=== PATIENT | male | born 1950 | race African-American/Black ===

== ENCOUNTER 2016-09-03 16:23 | Emergency (ER) | payer OTHER ==
[~2016-09-03 16:23] MED LIST: BC POWDER PO; BYSTOLIC5 MG PO; COLCH6 PO; COLCRYS0.6 MG PO; ENDOCET1 TA3 PO; GOODYS PM1 POW OR; GOUT MEDICATION; INDO50 PO; KADIAN10 MG PO; KADIANSR30 PO; KAPIDEX60 MG PO; LISINOPRIL40 MG PO; LORTAB10 PO; MIRALAXPKT PO; MSCONT60 PO; MSCONTIN PO; NEUR300 PO; NEUR600 PO; NORV10 PO; OXYCODONE IR PO; PERCOCET1 TA4 PO; PRILOSEC40 MG PO; TOPXL50 PO; VITAMIN B-121000 MC1 SL; Z300 PO; [UNRECOGNIZED DRUG - OTHER]
[2016-09-03 17:47] LABS: BASOPHILS 0.4 %; BASOPHILS ABSOLUTE 0.07 10/3/uL (0.0-0.16); EOSINOPHILS 1.9 %; EOSINOPHILS ABSOLUTE 0.33 10/3/uL (0.0-0.53); ER CBC TAT 0 Hrs 07 Mins; IMMATURE GRANULOCYTES 0.4 %; IMMATURE GRANULOCYTES ABSOLUTE 0.07 10/3/uL (0.0-0.11); LYMPHOCYTES 21.4 %; MEAN CORPUS HGB CONC 33.7 g/dL (32.0-36.0); MEAN CORPUSCULAR HEMOGLOB 29.9 pg (26.0-34.0); MEAN CORPUSCULAR VOLUME 88.6 fL (80-100); MONOCYTES 5.6 %; MONOCYTES ABSOLUTE 0.96 10/3/uL (0.21-1.20); NEUTROPHILS 70.3 %; NEUTROPHILS ABSOLUTE 12.15 10/3/uL (2.02-8.40); PLATELET COUNT 337 10/3/uL (150-400); RBC DISTRIBUTION WIDTH 13.9 % (12.0-16.0); WHITE BLOOD CELLS 17.3 10/3/uL (4.5-10.5)
[2016-09-03 17:48] LABS: HEMATOCRIT 33.5 % (40.0-51.0); HEMOGLOBIN 11.3 g/dL (13.6-17.8); MANUAL DIFF NO %; RED CELL COUNT 3.78 10/6/uL (4.7-6.1)
[2016-09-03 18:03] LABS: CALCIUM, SERUM 8.2 MG/DL (8.5-10.4); CHLORIDE, SERUM 103 MMOL/L (96-112); CO2 (CARBON DIOXIDE) 30 MMOL/L (24-34); CREATININE 0.59 MG/DL (0.70-1.30); GFR AFRICAN AMERICAN 124 ML/MIN (>=60); GFR NON AFRICAN AMERICAN 107 ML/MIN (>=60); GLUCOSE, SERUM 103 MG/DL (60-99); SGOT(AST) 27 U/L (5-40); SGPT(ALT) 31 U/L (5-65); SODIUM, SERUM 140 MMOL/L (135-148); TOTAL BILIRUBIN 0.6 MG/DL (0-1.2); TOTAL PROTEIN 7.7 G/DL (6.0-8.5)
[2016-09-03 18:04] LABS: ALBUMIN 3.9 G/DL (3.5-5.0); ALKALINE PHOSPHATASE 81 U/L (45-117); BUN (BLOOD UREA NITROGEN) 7 MG/DL (6-23); GLOBULIN 3.8 G/DL (2.5-4.1)
[2016-11-26] MEDS ORDERED: ENDOCET1 TA3 PO (09:58)
[2016-11-26] MEDS ORDERED: MSCONT60 PO (09:59)
[2016-11-26] MEDS ORDERED: CENTRUM PO (10:00)
[2016-11-26] MEDS ORDERED: B 12 (10:01)
[2016-11-26] MEDS ORDERED: VITAMIN B-121000 MC1 SL (10:27)
== END 2016-09-03 19:29 | disposition home or self-care (01) ==
LOC: ER 16:23
PROVIDERS: Emergency Medicine
DX: M54.2 Cervicalgia (principal); M79.1 Myalgia; D72.829 Elevated white blood cell count, unspecified; I10 Essential (primary) hypertension; K21.9 Gastro-esophageal reflux disease without esophagitis; T38.0X5A Adverse effect of glucocorticoids and synthetic analogues, initial encounter; Z88.8 Allergy status to other drugs, medicaments and biological substances; Z79.899 Other long term (current) drug therapy
CPT/HCPCS: 72040; 80053; 85025; 96374; 96375; 99284; J1200; J1885; J2800